=== PATIENT | female | born 1965 | race Caucasian/White ===

== ENCOUNTER 2021-12-25 15:55 | Emergency (ER) | payer MEDICAID ==
[~2021-12-25] VITALS: Ht 148.6 cm; Wt 68.9 kg
[2021-12-25 16:02] VITALS: BP 125/86
[2021-12-25] MEDS ORDERED: ACET-8386 PO (16:35)
[2021-12-25] MEDS ORDERED: IBUP-2213 PO (16:35)
[2021-12-25] MEDS ORDERED: ONDA8TAB87 PO (16:35)
[2021-12-25] MEDS: KETOROLAC 60 MG/2 ML VIAL IM ONE (16:51)
[2021-12-25] MEDS: ONDANSETRON 4 MG ODT PO ONE (16:52)
[2021-12-25 16:53] VITALS: BP 121/70
--- NOTE | 2021-12-25 16:53 | NUR ---
Patient discharged with v/s stable. Written and verbal after care instructions given and explained. Patient verbalized understanding. Ambulatory with steady gait. All questions addressed prior to discharge. Advised to follow up with PMD.
== END 2021-12-25 16:53 | disposition home or self-care (01) ==
LOC: MED 15:55
DX: R11.2 Nausea with vomiting, unspecified (principal); R10.9 Unspecified abdominal pain; R19.7 Diarrhea, unspecified
CPT/HCPCS: 81002; 81025; 96372; 99283; J1885; Q0162

== ENCOUNTER 2023-11-14 01:58 | Emergency (ER) | payer BC, MEDICAID ==
[~2023-11-14] VITALS: Ht 149.9 cm; Wt 70.8 kg
[~2023-11-14 01:58] MED LIST: ACET-8905 PO; IBUP-2213 PO; ONDA8TAB87 PO
[2023-11-14 02:17] VITALS: BP 147/72; PULSE 82; RESP 15; TEMP 98; O2SAT 99
[2023-11-14] MEDS ORDERED: ONDANSETRON 4 MG/2 ML VIAL ONE (02:40)
[2023-11-14 02:50] LABS: BASOPHILS % (AUTO) 0.8 % (0.0-2.0); EOSINOPHILS % (AUTO) 0.3 % (0.0-4.0); HEMATOCRIT 38.4 % (36-48); HEMOGLOBIN 13.4 g/dL (12.0-16.0); LYMPHOCYTES # (AUTO) 1.2 K/uL (2.5-16.5); LYMPHOCYTES % (AUTO) 20.2 % (20.5-51.1); MEAN CORPUSCULAR HEMOGLOBIN 32 pg (27-31); MEAN CORPUSCULAR HGB CONC 35 g/dL (33-37); MEAN CORPUSCULAR VOLUME 90.6 fL (80-94); MONOCYTES # (AUTO) 0.3 K/uL (0.8-1.0); MONOCYTES % (AUTO) 5.5 % (1.7-9.3); NEUTROPHILS # (AUTO) 4.3 K/uL (1.8-7.7); NEUTROPHILS % (AUTO) 73.2 % (42.2-75.2); PLATELET COUNT (AUTO) 239 K/uL (140-450); RED BLOOD CELL COUNT(AUTO) 4.23 MIL/uL (4.20-5.40); RED CELL DISTRIBUTION WIDTH 14.5 % (11.6-13.7); WHITE BLOOD COUNT (AUTO) 5.9 K/uL (4.8-10.8)
[2023-11-14] MEDS: NACL 0.9% 1,000 ML IV ONE (02:50)
[2023-11-14] MEDS: ONDANSETRON 4 MG/2 ML VIAL IVP ONE (02:51)
[2023-11-14 03:04] LABS: ANION GAP 13.5 (8-16); CALCIUM 9.3 mg/dL (8.5-10.1); CARBON DIOXIDE 28.3 mmol/L (21-32); CREATININE 0.9 mg/dL (0.6-1.3); POTASSIUM 3.8 mmol/L (3.5-5.1)
[2023-11-14] MEDS ORDERED: ONDA-188 SL (04:54)
[2023-11-14 04:59] VITALS: BP 132/72; PULSE 82; RESP 16; TEMP 98; O2SAT 99
== END 2023-11-14 04:59 | disposition home or self-care (01) ==
LOC: MED 01:58
DX: R11.2 Nausea with vomiting, unspecified (principal); R19.7 Diarrhea, unspecified; R42 Dizziness and giddiness; Z79.1 Long term (current) use of non-steroidal anti-inflammatories (NSAID); Z79.899 Other long term (current) drug therapy; Z88.0 Allergy status to penicillin
CPT/HCPCS: 36415; 80048; 83690; 85025; 93005; 96361; 96374; 99284; J2405; J7030

== ENCOUNTER 2024-01-02 19:51 | Emergency (ER) | payer BC ==
[~2024-01-02] VITALS: Ht 152.4 cm; Wt 72.6 kg
[~2024-01-02 19:51] MED LIST changes: +ONDA-188 SL
[2024-01-02 20:02] VITALS: BP 147/81; PULSE 92; RESP 16; TEMP 97.2; O2SAT 97
[2024-01-02] MEDS: ONDANSETRON 4 MG ODT PO ONE (20:49)
[2024-01-02] MEDS ORDERED: FAMO-90 PO (21:32)
[2024-01-02] MEDS ORDERED: ONDA-188 SL (21:32)
[2024-01-02] MEDS: FAMOTIDINE 20 MG TAB PO ONE (21:38)
== END 2024-01-02 21:39 | disposition home or self-care (01) ==
LOC: MED 19:51
DX: K52.9 Noninfective gastroenteritis and colitis, unspecified (principal); Z88.0 Allergy status to penicillin; Z79.899 Other long term (current) drug therapy
CPT/HCPCS: 99283; Q0162